=== PATIENT | male | born 1950 | race African-American/Black ===

== ENCOUNTER 2017-01-13 21:59 | Emergency (ER) | payer MEDICARE, OTHER ==
[~2017-01-13] VITALS: Ht 175.3 cm; Wt 86.2 kg
[~2017-01-13 21:59] MED LIST: ACET500T68 PEG; AMLO10TA2 PEG; BACL10TA PEG; CARV3.12 PEG; CHLO15MO2 SWSP; CLON0.1T PEG; FURO-69 PEG; INSU100I17 SQ; MAGN2400 PEG; MULT-237 PEG; NITR1PAT9 TD; OMEP20CA9 PEG; POTA20LI PEG; VENL37.56 PEG; VENL75TA PEG
[2017-01-13 22:06] VITALS: BP 134/72
--- NOTE | 2017-01-14 00:12 | PHYS DOC ---
Past Medical History Past Medical History: Anemia, Constipation, CVA, Dementia, Depression, Diabetes -Type II, GERD, High Cholesterol, Hypertension, Stroke Additional Past Medical Histor: aphasia, angina, aterosclerotic heart disease, hemiparesis Past Surgical History: Other Additional Past Surgical Histo: g-tube placement Alcohol Use: None Drug Use: None Adult General Chief Complaint Chief Complaint: GI PROBLEM HPI HPI This is a 66 yo male presenting from an assisted living facility for a G-tube malfunction. The there is a rubber piece that has broken that is used to flush and the patient receives feeds through this area. Pt can not provide history secondary to his history of CVA but appears in no acute distress. Assisted living facility denies any other complaints. Review of Systems Review of Systems A 10 point ROS is unable to be obtained secondary to the patient underlying mental status. Allergies Allergies Allergies Coded Allergies Type Severity Reaction Last Updated Verified No Known Drug Allergies 01/15/16 No Physical Exam Physical Exam Constitutional: Well developed, well nourished, no acute distress, non-toxic appearance. [] HENT: Normocephalic, atraumatic, bilateral external ears normal, oropharynx moist, no oral exudates, nose normal. [] Eyes: PERRLA, EOMI, conjunctiva normal, no discharge. [] Neck: Normal range of motion, no tenderness, supple, no stridor. [] Cardiovascular:Heart rate regular rhythm, no murmur [] Lungs & Thorax: Bilateral breath sounds clear to auscultation [] Abdomen: Bowel sounds normal, soft, no tenderness, no masses, no pulsatile masses, G-tube rubber adapter is non-functional. [] Skin: Warm, dry, no erythema, no rash. [] Back: No tenderness, no CVA tenderness. [] Extremities: No tenderness, no cyanosis, no clubbing, ROM intact, no edema. [] Neurologic: Normal motor function, normal sensory function, no focal deficits noted. [] Psychologic: Affect normal, judgement normal, mood normal. [] Current Patient Data Vital Signs Vital Signs Date Time Temp Pulse Resp B/P Pulse Ox O2 Delivery O2 Flow Rate FiO2 01/13/17 22:06 98.4 61 16 134/72 96 Room Air 98.4 EKG EKG [] Radiology/Procedures Radiology/Procedures [] Course & Med Decision Making Course & Med Decision Making Pertinent Labs and Imaging studies reviewed. (See chart for details) 66-year-old male who presents with G-tube malfunction had the rubber adapter replaced and the tube was then assessed and gastric fluid was successfully aspirated through the rubber adapter. The tube appears to be functioning properly and the patient will be discharged back to his assisted living facility. There is no indication to perform any other laboratory workup or imaging at this time. Dragon Disclaimer Dragon Disclaimer This electronic medical record was generated, in whole or in part, using a voice recognition dictation system. Departure Departure Impression: Primary Impression: Gastrostomy tube dysfunction Disposition: 01 HOME, SELF-CARE Admitting Physician: Other Condition: STABLE Referrals: DIYA RAMOS MD (PCP) Patient Instructions: Care of a Feeding Tube, [id number] Additional Instructions: Please follow up with your doctor regarding your g-tube. Return to the ER if you develop any worsening of your symptoms or if the tube does not flush appropriately. FILOMENA BRITT DO Jan 14, 2017 00:12
== END 2017-01-14 01:01 | disposition home or self-care (01) ==
LOC: ER 21:59
DX: K94.23 Gastrostomy malfunction (principal); E11.9 Type 2 diabetes mellitus without complications; E78.00 Pure hypercholesterolemia, unspecified; I10 Essential (primary) hypertension; K21.9 Gastro-esophageal reflux disease without esophagitis; Z86.73 Personal history of transient ischemic attack (TIA), and cerebral infarction without residual deficits; Z93.1 Gastrostomy status
CPT/HCPCS: 99284

== ENCOUNTER 2017-05-28 01:46 | Emergency (ER) | payer MEDICARE, OTHER ==
[~2017-05-28 01:46] MED LIST changes: -POTA20LI PEG; +POTA20LI27 PEG
--- NOTE | 2017-05-28 02:30 | RAD ---
RS Compliance Statement: One or more of the following individualized dose reduction techniques were utilized for this examination: 1. Automated exposure control 2. Adjustment of the mA and/or kV according to patient size 3. Use of iterative reconstruction technique CT HEAD WITHOUT CONTRAST History: head pain after fall Comparison: None. Procedure: Axial images are obtained of the head from the skull base through the vertex without IV contrast. Findings: The ventricles and sulci are prominent, consistent with age-related cerebral atrophy. Incidental cavum septum pellucidum et vergae. There is scattered periventricular white matter hypoattenuation. This is a nonspecific finding but is commonly due to chronic small vessel ischemic disease in a patient of this age. Old left basal ganglia lacunar infarct. No mass-effect, midline shift, hemorrhage, extra-axial fluid collection, or obvious acute infarction is identified. Basilar cisterns are patent. Bone windows demonstrate no acute calvarial abnormality. Mucous retention cyst or polyp left maxillary sinus. The other visualized paranasal sinuses are clear. Mastoid air cells are well aerated. IMPRESSION: 1. No acute intracranial abnormality. 2. Senescent changes. Old left basal ganglia lacunar infarct. Electronically signed by: Jonn Gary MD (05/28/2017 2:27 AM) [facility]
--- NOTE | 2017-05-28 04:17 | RAD ---
LEFT WRIST, 3 VIEWS Indication: wrist pain after fall Findings: Positioning is suboptimal. There is no acute fracture or dislocation. No bony erosion is identified. The bony articulations are maintained. The mineralization is normal for patient age. There is no soft tissue swelling or radiopaque foreign body. IMPRESSION: No acute fracture or dislocation. Electronically signed by: Jonn Gary MD (05/28/2017 4:13 AM) [facility]
--- NOTE | 2017-05-28 04:30 | PHYS DOC ---
Past Medical History Past Medical History: Anemia, Constipation, CVA, Dementia, Depression, Diabetes -Type II, GERD, High Cholesterol, Hypertension, Stroke Additional Past Medical Histor: aphasia, angina, aterosclerotic heart disease, hemiparesis Past Surgical History: Other Additional Past Surgical Histo: g-tube placement Alcohol Use: None Drug Use: None Adult General Chief Complaint Chief Complaint: MECHANICAL FALL HPI HPI Patient is a 66 year old male who presents with pain after a fall. Per staff at [facility], patient rolled out of low bed onto the floor. Unknown whether he lost consciousness. He complains of left wrist pain. Staff were concerned about PEG tube placement though it did not become dislodged. He has history of CVA with left hemiparesis. No blood thinners on med rec. Review of Systems Review of Systems unable to obtain as patient is aphasic. Allergies Allergies Allergies Coded Allergies Type Severity Reaction Last Updated Verified No Known Drug Allergies 01/15/16 No Physical Exam Physical Exam Constitutional: Well developed, well nourished, no acute distress, non-toxic appearance. HENT: Normocephalic, atraumatic, bilateral external ears normal, oropharynx moist, nose normal. Eyes: pupils asymmetric 2 mm right & 5 mm left, left eye deviate upward & to the left & not reactive, conjunctiva normal, no discharge. Neck: supple, no stridor. no midline c-spine tenderness. Cardiovascular: RRR, no murmurs, no edema. Lungs & Thorax: LCTAB, no wheezing, no respiratory distress. Abdomen: soft, nontender, nondistended. PEG tube is in place. Skin: Warm, dry, no erythema, no rash. Back: No spinal tenderness. Extremities: left wrist tenderness over distal radius, contracture, minimal range of motion, no elbow tenderness, radial pulse 2+, difficulty complying with sensory/motor exam. Neurologic: Alert, left hemiparesis. Current Patient Data Vital Signs Vital Signs Date Time Temp Pulse Resp B/P (MAP) Pulse Ox O2 Delivery O2 Flow Rate FiO2 05/28/17 01:55 96.0 62 20 167/92 (117) 99 Room Air 96.0 EKG EKG [] Radiology/Procedures Radiology/Procedures PROCEDURE: WRIST 3V LEFT LEFT WRIST, 3 VIEWS Indication: wrist pain after fall Findings: Positioning is suboptimal. There is no acute fracture or dislocation. No bony erosion is identified. The bony articulations are maintained. The mineralization is normal for patient age. There is no soft tissue swelling or radiopaque foreign body. IMPRESSION: No acute fracture or dislocation. Electronically signed by: Jonn Gardner MD (05/28/2017 4:13 AM) [facility] DICTATED and SIGNED BY: JONN GARDNER MD DATE: 05/28/17 0411 PROCEDURE: CT HEAD WO CONTRAST PQRS Compliance Statement: One or more of the following individualized dose reduction techniques were utilized for this examination: 1. Automated exposure control 2. Adjustment of the mA and/or kV according to patient size 3. Use of iterative reconstruction technique CT HEAD WITHOUT CONTRAST History: head pain after fall Comparison: None. Procedure: Axial images are obtained of the head from the skull base through the vertex without IV contrast. Findings: The ventricles and sulci are prominent, consistent with age-related cerebral atrophy. Incidental cavum septum pellucidum et vergae. There is scattered periventricular white matter hypoattenuation. This is a nonspecific finding but is commonly due to chronic small vessel ischemic disease in a patient of this age. Old left basal ganglia lacunar infarct. No mass-effect, midline shift, hemorrhage, extra-axial fluid collection, or obvious acute infarction is identified. Basilar cisterns are patent. Bone windows demonstrate no acute calvarial abnormality. Mucous retention cyst or polyp left maxillary sinus. The other visualized paranasal sinuses are clear. Mastoid air cells are well aerated. IMPRESSION: 1. No acute intracranial abnormality. 2. Senescent changes. Old left basal ganglia lacunar infarct. Electronically signed by: Jonn Gardner MD (05/28/2017 2:27 AM) [facility] DICTATED and SIGNED BY: JONN GARDNER MD DATE: 05/28/17 0223 [] Course & Med Decision Making Course & Med Decision Making Pertinent Labs and Imaging studies reviewed. (See chart for details) The patient presents with pain after a fall. RN able to aspirate tube feed from PEG tube, placement appears appropriate. No evidence of acute injury from the fall. Recommend supportive care and discharge back to rehabilitation. Follow-up as needed with primary care physician. Return to the emergency department for change in mental status, focal neurologic deficit, any otherwise worsening condition. Discharged in stable condition. [] Dragon Disclaimer Dragon Disclaimer This electronic medical record was generated, in whole or in part, using a voice recognition dictation system. Departure Departure Impression: Primary Impression: Closed head injury Disposition: 05 TRANSFER OTHER Condition: STABLE Referrals: DIYA RAMOS MD (PCP) Patient Instructions: Head Injury, Adult, [id number] Additional Instructions: You were seen in the emergency department today after fall. No serious injuries were found & PEG tube appears to be functioning well without displacement. Follow up with primary care physician for additional concerns. Come back for worsening condition. JOHNNY KLINE MD May 28, 2017 04:30
[2017-05-28 04:37] VITALS: BP 128/72
== END 2017-05-28 06:13 | disposition home or self-care (01) ==
LOC: ER 01:46
DX: S09.90XA Unspecified injury of head, initial encounter (principal); M25.532 Pain in left wrist; R47.01 Aphasia; E11.9 Type 2 diabetes mellitus without complications; E78.00 Pure hypercholesterolemia, unspecified; F03.90 Unspecified dementia, unspecified severity, without behavioral disturbance, psychotic disturbance, mood disturbance, and anxiety; F32.9 Major depressive disorder, single episode, unspecified; K21.9 Gastro-esophageal reflux disease without esophagitis; G81.94 Hemiplegia, unspecified affecting left nondominant side; I25.10 Atherosclerotic heart disease of native coronary artery without angina pectoris; Z86.73 Personal history of transient ischemic attack (TIA), and cerebral infarction without residual deficits; Z93.1 Gastrostomy status; W06.XXXA Fall from bed, initial encounter; Y93.89 Activity, other specified; Y92.89 Other specified places as the place of occurrence of the external cause; Y99.8 Other external cause status
CPT/HCPCS: 70450; 73110; 99284-25

== ENCOUNTER → 2017-07-21 | Day surgery (SDC) | payer MEDICARE, OTHER ==
[~2017-07-21] MED LIST changes: +IV RINGERS,LACTATED 1000ML 1,000 ML IV SCH; +LIDOCAINE 1% 1 ML SYRINGE. ID PRN; +LIDOCAINE 2% PF Vial for OR 5 ML VIAL. ONE; +MIDAZOLAM HCL/PF 2 MG/2 ML VIAL. IV PRN; +PROPOFOL 20 ML IV ONE; +fentaNYL PF VIAL 100 MCG/2 ML VIAL IV PRN
--- NOTE | 2017-07-21 15:49 | PDOC1 ---
History and Physical Date of Admission Date of Admission DATE: 07/21/17 TIME: 15:45 Source Source: Chart review History of Present Illness History of Present Illness 66 hebrew/o male, tube feeding-dependent after CVA. Current tube leaking per NH and in need of change. Patient non-verbal and no history from him. Past Medical History Cardiovascular: HTN, Hyperlipidemia CENTRAL NERVOUS SYSTEM: CVA Heme/Onc: Cancer (ascending colon) Psych: Depression Renal/: Urinary Incontinence Endocrine: Diabetes Past Surgical History Past Surgical History: Colon Resection Family History Family History: Diabetes, Hypertension, Stroke Social History Smoke: No ALCOHOL: none Drugs: None Current Medications Current Medications Current Medications Midazolam HCl (Versed) 2 mg PRN 1X PRN IV PRIOR TO PROCEDURE; Start 07/21/17 at 14:45; Stop 07/21/17 at 18:00 Fentanyl Citrate (Fentanyl 2ml Vial) 25 mcg PRN Q5MIN PRN IV X 2 DOSES FOR PAIN ; Start 07/21/17 at 14:45; Stop 07/21/17 at 18:00 Fentanyl Citrate (Fentanyl 2ml Vial) 50 mcg PRN Q5MIN PRN IV X 2 DOSES FOR PAIN ; Start 07/21/17 at 14:45; Stop 07/21/17 at 18:00 Ringer's Solution 1,000 ml @ 125 mls/hr Q8H IV ; Start 07/21/17 at 14:33; Stop 07/22/17 at 02:32 Lidocaine HCl 2 ml 1X PRN PRN ID IV START; Start 07/21/17 at 14:45; Stop at 18:00 Active Scripts Active Reported Novolog Flexpen (Insulin Aspart) 100 Unit/1 Ml Insuln.pen 100 Unit SQ Acetaminophen 500 Mg Tablet 1 Tab PEG BID Potassium Chloride 20 Meq/15 Ml Liquid 30 Meq PEG QID Omeprazole 20 Mg Capsule.dr 1 Cap PEG DAILY Amlodipine Besylate 10 Mg Tablet 1.5 Tab PEG DAILY NITRO-DUR 0.4mg/hr (Nitroglycerin) 1 Each Patch.td24 1 Each TD Daily Vitamin Formula-Minerals (Multivitamin With Minerals) 1 Each Tablet 1 Each PEG DAILY Milk Of Magnesia (Magnesium Hydroxide) 2,400 Mg/10 Ml Oral.susp 2,400 Mg PEG PRN Lasix (Furosemide) 20 Mg Tablet 1 Tab PEG DAILY Venlafaxine Hcl 75 Mg Tablet 150 Mg PEG DAILY Venlafaxine Hcl 37.5 Mg Tablet 1 Tab PEG DAILY Clonidine Hcl 0.1 Mg Tablet 0.1 Mg PEG BID Baclofen 10 Mg Tablet 1 Tab PEG QHS Coreg (Carvedilol) 3.125 Mg Tablet 1 Tab PEG BID Peridex (Chlorhexidine Gluconate) 15 Ml Mouthwash 15 Ml SWSP BID Allergies Allergies: Coded Allergies: No Known Drug Allergies (Unverified , 07/21/17) ROS Review of System Not obtainable from patient due to mental status. Physical Exam General: Other (Non-verbal) Lungs: Clear to auscultation Heart: S1S2, RRR, no gallops, no murmurs Abdomen: Normal bowel sounds, Soft, No tenderness, No hepatosplenomegaly, No masses Rectal Exam: not examined Extremities: No cyanosis, No edema Skin: No significant lesion Vitals Vitals Vital Signs Date Time Temp Pulse Resp B/P (MAP) Pulse Ox O2 Delivery O2 Flow Rate FiO2 07/21/17 14:21 97.6 61 20 98 97.6 Labs Labs Laboratory Tests Test 07/21/17 14:57 Glucose (Fingerstick) 90 mg/dL (70-99) Laboratory Tests Test 07/21/17 14:57 Glucose (Fingerstick) 90 mg/dL (70-99) VTE Prophylaxis Ordered VTE Prophylaxis Devices: No VTE Pharmacological Prophylaxi: No Assessment/Plan Assessment/Plan IMP: dysfunctional PEG tube. Plan: replace PEG. KRISTI HANCOCK MD Jul 21, 2017 15:49
--- NOTE | 2017-07-21 16:13 | PDOC4 ---
PROCEDURE Procedure EGD/re-PEG Indication: fatigued g-tube Meds: per anesthesia Findings: E--normal G--Old g-tube D-- --Old tube cut/removed with snare. --New peg after re-insertion of scope place uneventfully. kaylee well. IMP: successful peg replacement. REC: may use tube immediately back to [place]. KRISTI HANCOCK MD Jul 21, 2017 16:13
[2017-07-21 16:40] VITALS: BP 160/85
== END | disposition home or self-care (01) ==
LOC: SURG 14:01
PROVIDERS: ATTEND Internal Medicine Gastroenterology
DX: K94.23 Gastrostomy malfunction (principal); K21.9 Gastro-esophageal reflux disease without esophagitis; I10 Essential (primary) hypertension; E11.9 Type 2 diabetes mellitus without complications; Z86.69 Personal history of other diseases of the nervous system and sense organs; Z86.39 Personal history of other endocrine, nutritional and metabolic disease; Z86.73 Personal history of transient ischemic attack (TIA), and cerebral infarction without residual deficits
CPT/HCPCS: 43246; 82962; J2704; J2001

== ENCOUNTER 2018-02-28 22:32 | Inpatient (IN) | payer MEDICARE, OTHER ==
[2018-02-28 22:58] LABS: BILIRUBIN,URINE NEGATIVE (NEG); CLARITY,URINE CLEAR; COLOR,URINE YELLOW; GLUCOSE,URINE NEGATIVE (NEG); NITRITE,URINE NEGATIVE (NEG); PROTEIN,URINE 30 mg/dL (NEG-TRACE)
[2018-02-28 23:12] LABS: BACTERIA,URINE FEW /HPF (0-FEW); RBC,URINE RARE /HPF (0-2); SQUAMOUS EPITHELIAL CELL,UR MOD /LPF; WBC,URINE RARE /HPF (0-4)
[2018-02-28] MEDS: IV NORMAL SALINE 1000ML BAG 1,000 ML IV (23:13)
[2018-02-28 23:16] LABS: AGAP ISTAT 16 mmol/L (6-14); BUN ISTAT 26 mg/dL (8-26); CHLORIDE ISTAT 102 mmol/L (98-110); CREATININE ISTAT 0.9 mg/dL (0.5-1.4); GLUCOSE ISTAT 72 mg/dL (70-99); HEMATOCRIT ISTAT 25 % (37-52); HEMOGLOBIN ISTAT 8.5 g/dL (14-18); ION CA ISTAT 1.07 mmol/L (1.13-1.32); POTASSIUM ISTAT 3.5 mmol/L (3.5-5.0); SODIUM ISTAT 145 mmol/L (135-145); TOT CO2 ISTAT 31 mmol/L (23-32)
[2018-02-28 23:31] LABS: ADD MAN DIFF? NO
[2018-02-28 23:34] LABS: BASO % 0 % (0-3); EOS % 0 % (0-3); HEMATOCRIT 25.7 % (39.0-53.0); HEMOGLOBIN 7.6 g/dL (13.0-17.5); LYMPH # 1.6 x10^3/uL (1.0-4.8); LYMPH % 13 % (24-48); MEAN CORPUSCULAR HEMOGLOBIN 19 pg (25-35); MEAN CORPUSCULAR HGB CONC 29 g/dL (31-37); MEAN CORPUSCULAR VOLUME 65 fL (79-100); MONO # 1.1 x10^3/uL (0.0-1.1); MONO % 9 % (0-9); NEUT % 78 % (31-73); PLATELET COUNT 403 x10^3/uL (140-400); RED BLOOD COUNT 3.98 x10^6/uL (4.30-5.70); RED CELL DISTRIBUTION WIDTH 21.9 % (11.5-14.5); WHITE BLOOD COUNT 12.9 x10^3/uL (4.0-11.0)
[2018-02-28 23:44] LABS: ANION GAP 9 (6-14); BLOOD UREA NITROGEN 31 mg/dL (8-26); BUN/CREATININE RATIO 39 (6-20); CALCIUM 8.3 mg/dL (8.5-10.1); CARBON DIOXIDE 32 mmol/L (21-32); CHLORIDE 106 mmol/L (98-107); CREATININE 0.8 mg/dL (0.7-1.3); GLUCOSE 71 mg/dL (70-99); POTASSIUM 3.6 mmol/L (3.5-5.1); SODIUM 147 mmol/L (136-145)
[2018-02-28 23:50] LABS: ALBUMIN 1.7 g/dL (3.4-5.0); ALK PHOS 502 U/L (46-116); ALT (SGPT) 39 U/L (16-63); AST (SGOT) 235 U/L (15-37); LIPASE 65 U/L (73-393); TOTAL BILIRUBIN 0.8 mg/dL (0.2-1.0)
[2018-03-01 00:07] LABS: ALBUMIN/GLOBULIN RATIO 0.3 (1.0-1.7); TOTAL PROTEIN 7.4 g/dL (6.4-8.2)
[2018-03-01] MEDS: IOHEXOL 300 MG/ML 100ML VIAL. IV (00:12)
[2018-03-01] MEDS ORDERED: CONTRAST GIVEN MC (00:30)
[2018-03-01] MEDS ORDERED: ONDANSETRON PF 4 MG/2 ML VIAL. IV (01:30)
[2018-03-01] MEDS ORDERED: fentaNYL PF VIAL 100 MCG/2 ML VIAL IV (01:30)
[2018-03-01] MEDS ORDERED: PNEUMOCOCCAL VAX SCREEN BY RX. MC (03:30)
[2018-03-01] MEDS ORDERED: INFLUENZA VAX SCREEN BY RX. MC (03:30)
[2018-03-01 03:55] LABS: MICROCYTOSIS MOD; PLT ESTIMATE INCREASED (ADEQUATE); POIKILOCYTOSIS SLIGHT; POLYCHROMASIA SLIGHT
[2018-03-01 03:56] LABS: HYPOCHROMIA MOD; OVALOCYTES OCC; ROULEAUX PRESENT; TARGET CELLS OCC
[2018-03-01] MEDS: PNEUMOC CONJ VACC 23-VALENT 0.5 ML VIAL. VAX IM (08:40)
[2018-03-01] MEDS ORDERED: CHLORHEXIDINE 0.12% 15 ML MOUTHWASH. SWSP (09:00)
[2018-03-01] MEDS: MULTIVITAMIN with MINERAL TABLET. PO (10:00)
[2018-03-01] MEDS: IPRATRPIUM/ALBUTEROL 0.5/2.5MG 3 ML NEBU. NEB ×3 (11:01→19:41)
[2018-03-01] MEDS: CARVEDILOL 3.125 MG TABLET. PEG ×2 (11:07→16:43)
[2018-03-01] MEDS: cloNIDine HCL 0.1 MG TABLET PEG ×2 (11:07→21:18)
[2018-03-01] MEDS: POTASSIUM CHLORIDE 20 MEQ/15 ML ORAL LIQUID. PEG ×2 (11:07→21:16)
[2018-03-01] MEDS: VENLAFAXINE 75 MG TABLET. PEG (11:07)
[2018-03-01] MEDS: LANSOPRAZOLE 30 MG TAB.RAP.DR PEG (11:07)
[2018-03-01] MEDS: ACETAMINOPHEN 325 MG TABLET. PO ×2 (11:08→16:42)
[2018-03-01] MEDS: FUROSEMIDE 20 MG TABLET PEG (11:08)
[2018-03-01] MEDS: amLODIPine BESYLATE 10 MG TABLET PEG (11:08)
[2018-03-01] MEDS: NITROGLYCERIN 0.4MG/HR PATCH. TD (11:10)
[2018-03-01] MEDS ORDERED: PIP/TAZO PER PHARMACY MC (11:30)
[2018-03-01] MEDS: POTASSIUM CL 20MEQ D5-0.45NACL 1,000 ML IV (11:57)
[2018-03-01] MEDS: PIPERACILLIN/TAZOBACTAM 4.5 GM in IV NORMAL SALINE 100ML 100 ML IV ×3 (11:59→23:14)
[2018-03-01 12:36] LABS: BILIRUBIN,URINE NEGATIVE (NEG); CLARITY,URINE CLEAR; COLOR,URINE YELLOW; GLUCOSE,URINE NEGATIVE (NEG); NITRITE,URINE NEGATIVE (NEG); PH,URINE 7.5; PROTEIN,URINE 30 mg/dL (NEG-TRACE)
[2018-03-01 12:49] LABS: INFLUENZA A PATIENT NEGATIVE (NEGATIVE); INFLUENZA B PATIENT NEGATIVE (NEGATIVE); OBC FLU VALID
[2018-03-01 12:56] LABS: SQUAMOUS EPITHELIAL CELL,UR MOD /LPF
[2018-03-01 12:57] LABS: AMORPHOUS SEDIMENT,UR PRESENT /HPF; BACTERIA,URINE FEW /HPF (0-FEW)
[2018-03-01] MEDS: VANCOMYCIN 2 GM in IV 1/2 NORMAL SALINE 500 ML IV (13:15)
[2018-03-01 13:26] LABS: LACTIC ACID 1.7 mmol/L (0.4-2.0)
[2018-03-01] MEDS: VANCOMYCIN PER PHARMACY MC (13:55)
[2018-03-01 15:15] LABS: MRSA BY PCR Negative (Negative)
[2018-03-01 21:12] LABS: POC GLUCOSE 88 mg/dL (70-99)
[2018-03-01] MEDS: VENLAFAXINE 50 MG TABLET. PEG (21:16)
[2018-03-02 00:05] LABS: POC GLUCOSE 88 mg/dL (70-99)
[2018-03-02] MEDS: VANCOMYCIN 1.25 GM in IV DEXTROSE 5 %-0.2 % NACL 250 ML IV ×2 (00:20→13:00)
[2018-03-02] MEDS: ACETAMINOPHEN 325 MG TABLET. PO ×4 (00:20→16:44)
[2018-03-02 05:08] LABS: ADD MAN DIFF? NO
[2018-03-02 05:22] LABS: BASO % 0 % (0-3); EOS % 0 % (0-3); HEMATOCRIT 22.8 % (39.0-53.0); LYMPH # 1.7 x10^3/uL (1.0-4.8); LYMPH % 14 % (24-48); MEAN CORPUSCULAR HEMOGLOBIN 19 pg (25-35); MEAN CORPUSCULAR HGB CONC 30 g/dL (31-37); MEAN CORPUSCULAR VOLUME 65 fL (79-100); MONO # 1.2 x10^3/uL (0.0-1.1); MONO % 9 % (0-9); NEUT # 9.5 x10^3uL (1.8-7.7); NEUT % 76 % (31-73); PLATELET COUNT 340 x10^3/uL (140-400); RED BLOOD COUNT 3.52 x10^6/uL (4.30-5.70); RED CELL DISTRIBUTION WIDTH 21.9 % (11.5-14.5); WHITE BLOOD COUNT 12.4 x10^3/uL (4.0-11.0)
[2018-03-02] MEDS: PIPERACILLIN/TAZOBACTAM 4.5 GM in IV NORMAL SALINE 100ML 100 ML IV ×2 (05:24→12:00)
[2018-03-02 05:44] LABS: ALBUMIN 1.5 g/dL (3.4-5.0); ALBUMIN/GLOBULIN RATIO 0.3 (1.0-1.7); ALK PHOS 419 U/L (46-116); ALT (SGPT) 51 U/L (16-63); ANION GAP 6 (6-14); AST (SGOT) 233 U/L (15-37); BLOOD UREA NITROGEN 30 mg/dL (8-26); BUN/CREATININE RATIO 30 (6-20); CALCIUM 8.2 mg/dL (8.5-10.1); CARBON DIOXIDE 31 mmol/L (21-32); CHLORIDE 106 mmol/L (98-107); GFR 89.6; GLUCOSE 96 mg/dL (70-99); POTASSIUM 3.8 mmol/L (3.5-5.1); SODIUM 143 mmol/L (136-145); TOTAL BILIRUBIN 0.8 mg/dL (0.2-1.0); TOTAL PROTEIN 6.8 g/dL (6.4-8.2)
[2018-03-02 06:17] LABS: HEMOGLOBIN 6.8 g/dL (13.0-17.5)
[2018-03-02 06:55] LABS: POC GLUCOSE 93 mg/dL (70-99)
[2018-03-02] MEDS: IPRATRPIUM/ALBUTEROL 0.5/2.5MG 3 ML NEBU. NEB ×4 (07:30→19:28)
[2018-03-02 10:21] LABS: % SAT IRON 8 % (15-34); IRON,SERUM 12 ug/dL (65-175)
[2018-03-02 10:32] LABS: FOLATE 8.24 ng/ml (3.2-20.0)
[2018-03-02 10:33] LABS: VITAMIN-B12 1177 pg/mL (247-911)
[2018-03-02 10:34] LABS: FERRITIN 95 ng/mL (26-388)
[2018-03-02 11:01] LABS: RETIC COUNT 1.2 % (0.5-2.5)
[2018-03-02] MEDS: MULTIVITAMIN with MINERAL TABLET. PO (11:05)
[2018-03-02] MEDS: ASPIRIN CHEWABLE 81 MG TABLET. GT (11:05)
[2018-03-02] MEDS: POTASSIUM CHLORIDE 20 MEQ/15 ML ORAL LIQUID. PEG ×2 (11:05→20:17)
[2018-03-02] MEDS: POTASSIUM CL 20MEQ D5-0.45NACL 1,000 ML IV (11:05)
[2018-03-02] MEDS: FUROSEMIDE 20 MG TABLET PEG (11:05)
[2018-03-02] MEDS: LOSARTAN POTASSIUM 50 MG TABLET. PEG (11:06)
[2018-03-02] MEDS: CALCIUM CARBONATE 500 MG TABLET PO ×2 (11:06→16:30)
[2018-03-02] MEDS: ASCORBIC ACID 500 MG TABLET PEG (11:07)
[2018-03-02] MEDS: VENLAFAXINE 75 MG TABLET. PEG ×2 (11:07→20:17)
[2018-03-02] MEDS: amLODIPine BESYLATE 10 MG TABLET PEG (11:08)
[2018-03-02] MEDS: CARVEDILOL 3.125 MG TABLET. PEG ×2 (11:08→19:18)
[2018-03-02] MEDS: LANSOPRAZOLE 30 MG TAB.RAP.DR PEG (11:09)
[2018-03-02] MEDS: CHOLECALCIFEROL (VITAMIN D3) 1,000 UNIT TABLET PEG (11:09)
[2018-03-02] MEDS: NITROGLYCERIN 0.4MG/HR PATCH. TD (11:10)
[2018-03-02] MEDS: VANCOMYCIN PER PHARMACY MC (11:26)
[2018-03-02] MEDS: FERROUS SULFATE 325 MG TABLET. PO ×2 (12:00→17:00)
[2018-03-02] MEDS: IOHEXOL 300 MG/ML 100ML VIAL. IV (12:30)
[2018-03-02] MEDS ORDERED: CONTRAST GIVEN MC (12:30)
[2018-03-02 16:18] LABS: IMMEDIATE SPIN CROSSMATCH 1 1
[2018-03-02 16:26] LABS: POC GLUCOSE 103 mg/dL (70-99)
[2018-03-02 17:10] LABS: POC GLUCOSE 84 mg/dL (70-99)
[2018-03-02] MEDS: FUROSEMIDE 40 MG/4 ML VIAL. IVP ×2 (20:16)
[2018-03-02 20:44] LABS: HEMATOCRIT 27.4 % (39.0-53.0); HEMOGLOBIN 8.4 g/dL (13.0-17.5); MEAN CORPUSCULAR HGB CONC 31 g/dL (31-37)
[2018-03-03] MEDS: POTASSIUM CL 20MEQ D5-0.45NACL 1,000 ML IV (01:10)
[2018-03-03 04:02] LABS: ADD MAN DIFF? NO
[2018-03-03 04:06] LABS: BASO # 0.1 x10^3/uL (0.0-0.2); BASO % 1 % (0-3); EOS # 0.1 x10^3/uL (0.0-0.7); EOS % 1 % (0-3); HEMATOCRIT 28.5 % (39.0-53.0); HEMOGLOBIN 8.8 g/dL (13.0-17.5); LYMPH # 1.3 x10^3/uL (1.0-4.8); LYMPH % 11 % (24-48); MEAN CORPUSCULAR HEMOGLOBIN 21 pg (25-35); MEAN CORPUSCULAR HGB CONC 31 g/dL (31-37); MEAN CORPUSCULAR VOLUME 67 fL (79-100); MONO # 1.1 x10^3/uL (0.0-1.1); MONO % 9 % (0-9); NEUT # 9.2 x10^3uL (1.8-7.7); NEUT % 79 % (31-73); PLATELET COUNT 358 x10^3/uL (140-400); RED BLOOD COUNT 4.24 x10^6/uL (4.30-5.70); RED CELL DISTRIBUTION WIDTH 24.4 % (11.5-14.5); WHITE BLOOD COUNT 11.8 x10^3/uL (4.0-11.0)
[2018-03-03 04:27] LABS: ALBUMIN 1.5 g/dL (3.4-5.0); ALBUMIN/GLOBULIN RATIO 0.3 (1.0-1.7); ALK PHOS 417 U/L (46-116); ALT (SGPT) 35 U/L (16-63); ANION GAP 6 (6-14); AST (SGOT) 231 U/L (15-37); BLOOD UREA NITROGEN 30 mg/dL (8-26); BUN/CREATININE RATIO 27 (6-20); CALCIUM 8.2 mg/dL (8.5-10.1); CARBON DIOXIDE 30 mmol/L (21-32); CHLORIDE 105 mmol/L (98-107); CREATININE 1.1 mg/dL (0.7-1.3); GFR 80.3; GLUCOSE 95 mg/dL (70-99); POTASSIUM 3.6 mmol/L (3.5-5.1); SODIUM 141 mmol/L (136-145); TOTAL BILIRUBIN 0.9 mg/dL (0.2-1.0)
[2018-03-03] MEDS: IPRATRPIUM/ALBUTEROL 0.5/2.5MG 3 ML NEBU. NEB ×2 (06:10→12:43)
[2018-03-03] MEDS: POTASSIUM CHLORIDE 20 MEQ/15 ML ORAL LIQUID. PEG (09:00)
[2018-03-03] MEDS ORDERED: ACETAMINOPHEN 650 MG/20.3 ML SOLUTION. PEG (09:30)
[2018-03-03] MEDS: FUROSEMIDE 20 MG TABLET PEG (09:31)
[2018-03-03] MEDS: ASPIRIN CHEWABLE 81 MG TABLET. GT (09:34)
[2018-03-03] MEDS: LOSARTAN POTASSIUM 50 MG TABLET. PEG (09:34)
[2018-03-03] MEDS: NITROGLYCERIN 0.4MG/HR PATCH. TD (09:39)
[2018-03-03] MEDS ORDERED: CARVEDILOL 6.25 MG TABLET. PEG (10:00)
[2018-03-03] MEDS: CARVEDILOL 3.125 MG TABLET. PEG (10:03)
[2018-03-03] MEDS: VENLAFAXINE 75 MG TABLET. PEG (10:04)
[2018-03-03] MEDS: amLODIPine BESYLATE 5 MG TABLET PEG (10:06)
[2018-03-03 11:27] LABS: POC GLUCOSE 98 mg/dL (70-99)
== END 2018-03-03 15:04 | disposition hospice, home (50) | DRG 871 ==
LOC: 6 SOUTH 03-01 01:30 → ER 22:32
PROVIDERS: Neurological Surgery
PROC: 30233N1 Transfusion of Nonautologous Red Blood Cells into Peripheral Vein, Percutaneous Approach (ICD-10-PCS; principal; 2018-03-02)
DX: A41.9 Sepsis, unspecified organism (principal); E43 Unspecified severe protein-calorie malnutrition; G93.41 Metabolic encephalopathy; L89.309 Pressure ulcer of unspecified buttock, unspecified stage; L89.159 Pressure ulcer of sacral region, unspecified stage; C78.7 Secondary malignant neoplasm of liver and intrahepatic bile duct; R18.8 Other ascites; D62 Acute posthemorrhagic anemia; F33.9 Major depressive disorder, recurrent, unspecified; I69.354 Hemiplegia and hemiparesis following cerebral infarction affecting left non-dominant side; C18.9 Malignant neoplasm of colon, unspecified; J98.11 Atelectasis; I13.0 Hypertensive heart and chronic kidney disease with heart failure and stage 1 through stage 4 chronic kidney disease, or unspecified chronic kidney disease; E11.22 Type 2 diabetes mellitus with diabetic chronic kidney disease; N18.9 Chronic kidney disease, unspecified; E87.6 Hypokalemia; D63.0 Anemia in neoplastic disease; K21.9 Gastro-esophageal reflux disease without esophagitis; I25.10 Atherosclerotic heart disease of native coronary artery without angina pectoris; E78.5 Hyperlipidemia, unspecified; E78.00 Pure hypercholesterolemia, unspecified; I50.9 Heart failure, unspecified; F01.50 Vascular dementia, unspecified severity, without behavioral disturbance, psychotic disturbance, mood disturbance, and anxiety; N28.1 Cyst of kidney, acquired; R13.12 Dysphagia, oropharyngeal phase; Z51.5 Encounter for palliative care; Z66 Do not resuscitate; I69.320 Aphasia following cerebral infarction; I69.322 Dysarthria following cerebral infarction; Z82.3 Family history of stroke; Z90.49 Acquired absence of other specified parts of digestive tract; Z82.49 Family history of ischemic heart disease and other diseases of the circulatory system; Z83.3 Family history of diabetes mellitus; Z87.01 Personal history of pneumonia (recurrent); Z87.440 Personal history of urinary (tract) infections; Z93.1 Gastrostomy status; Z68.26 Body mass index [BMI] 26.0-26.9, adult; Z87.891 Personal history of nicotine dependence
CPT/HCPCS: 36415; 51701; 74177; 80047; 80053; 81001; 82378; 82607; 82728; 82746; 82962; 83540; 83550; 83605; 83690; 85014; 85018; 85025; 85045; 86850; 86900; 86901; 86920; 87040; 87086; 87641; 87804; 87804-59; 94640; 94760; 96360; 99285-25; J1940; J2543; J3370; J7030; J7620; P9016; Q9967